=== PATIENT | male | born 1960 | race Two or more races ===

== ENCOUNTER 2024-07-15 10:20 | Emergency (ER) | payer MEDICAID, OTHER ==
[~2024-07-15] VITALS: Ht 165.1 cm; Wt 105.0 kg
[2024-07-15 10:23] VITALS: O2SAT 95
[2024-07-15 11:00] LABS: BASOPHILS % 0.5 % (0.0-2.0); EOSINOPHILS % 1.6 % (0.0-5.0); HEMATOCRIT. 43.8 % (42.0-52.0); HEMOGLOBIN. 14.4 g/dL (14.0-18.0); LYMPHOCYTES % 24.2 % (20.0-50.0); MEAN CORPUSCULAR HEMOGLOBIN 30.4 pg (28.0-32.0); MEAN CORPUSCULAR HGB CONC 32.8 g/dL (31.0-37.0); MEAN CORPUSCULAR VOLUME 92.7 fL (80.0-94.0); MEAN PLATELET VOLUME 8.7 fl (7.4-10.4); MONOCYTES % 9.2 % (2.0-8.0); NEUTROPHILS % 64.5 % (40.0-76.0); PLATELET 314 x1000/uL (130-400); RED BLOOD CELL COUNT 4.73 mill/uL (4.7-6.1); RED CELL DISTRIBUTION WIDTH 14.8 % (11.6-14.6); WHITE BLOOD COUNT 7.3 x1000/uL (4.5-11.0)
[2024-07-15 11:06] LABS: CHLORIDE 108 mEq/L (98-107); POTASSIUM 3.7 mEq/L (3.5-5.1); SODIUM 142 mEq/L (136-145)
[2024-07-15 11:07] LABS: CARBON DIOXIDE 25 mEq/L (21-32)
[2024-07-15 11:08] LABS: CALCIUM 9.6 mg/dL (8.7-10.4)
[2024-07-15 11:12] LABS: CREATININE 0.9 mg/dL (0.6-1.3)
[2024-07-15 11:13] LABS: GLUCOSE 114 mg/dL (70-105); UREA NITROGEN BLOOD 10 mg/dL (9-23)
[2024-07-15 11:17] LABS: TROPONIN I HIGH SENSITIVITY < 4 ng/L (3.0-53)
[2024-07-15] MEDS: MECLIZINE 25MG TABLET PO ONE (11:30)
[2024-07-15] MEDS: ONDANSETRON 4MG ODT PO ONE (11:30)
[2024-07-15 11:41] LABS: ALANINE AMINOTRANSFERASE 17 IU/L (10-49); ALBUMIN 4.5 g/dL (3.2-4.8); ASPARTATE AMINOTRANSFERASE 18 IU/L (<34); BILIRUBIN DIRECT 0.2 mg/dL (<=3.0); BILIRUBIN TOTAL 0.6 mg/dL (0.1-1.0); PROTEIN TOTAL 7.5 g/dL (6.0-8.3)
[2024-07-15] MEDS ORDERED: MECL-299 MT (13:00)
[2024-07-15] MEDS: CLONIDINE 0.1MG TABLET PO NR (13:01)
[2024-07-15 13:20] VITALS: BP 144/72; PULSE 61; RESP 16; TEMP 37.05852; O2SAT 96
== END 2024-07-15 13:28 | disposition home or self-care (01) ==
LOC: ER 10:20
DX: H81.399 Other peripheral vertigo, unspecified ear (principal); I10 Essential (primary) hypertension; Z96.659 Presence of unspecified artificial knee joint
CPT/HCPCS: 99285; 70450; 71045; 80076; 80048; 83690; 85025; 84484; 36415; 93005; J8597; Q0162